=== PATIENT | male | born 1965 | race Caucasian/White ===

== ENCOUNTER → 2018-02-23 | Outpatient (CLI) | payer BC ==
[2018-02-23 16:00] LABS: Basophils # (A) 0.1 k/uL (0-0.2); Basophils % (A) 1 %; Eosinophils # (A) 0.1 k/uL (0-0.7); Eosinophils % (A) 1 %; HCT 48.8 % (39.0-53.0); HGB 16.6 gm/dL (13.0-17.5); Lymphocytes # (A) 2.1 k/uL (1.0-4.8); Lymphocytes % (A) 16 %; MCH 28.1 pg (25.0-35.0); MCHC 34.1 g/dL (31.0-37.0); MCV 82.3 fL (80.0-100.0); Mean Platelet Volume 7.8; Monocytes # (A) 0.8 k/uL (0-1.0); Monocytes % (A) 6 %; Neutrophils # (A) 9.9 k/uL (1.3-7.7); Neutrophils % (A) 75 %; Platelet Count 280 k/uL (150-450); RBC 5.93 m/uL (4.30-5.90); RDW 13.3 % (11.5-15.5); WBC 13.2 k/uL (3.8-10.6)
[2018-02-23 16:09] LABS: Anion Gap 12 mmol/L; Blood Urea Nitrogen 21 mg/dL (9-20); Calcium 9.8 mg/dL (8.4-10.2); Carbon Dioxide 27 mmol/L (22-30); Chloride 101 mmol/L (98-107); Glucose 95 mg/dL (74-99); Potassium 4.2 mmol/L (3.5-5.1); Sodium 140 mmol/L (137-145)
== END | disposition home or self-care (01) ==
LOC: LABPAT 15:22
PROVIDERS: ATTEND Urology
DX: Z01.818 Encounter for other preprocedural examination (principal); I10 Essential (primary) hypertension; C61 Malignant neoplasm of prostate; R35.0 Frequency of micturition; Z79.899 Other long term (current) drug therapy; Z01.812 Encounter for preprocedural laboratory examination
CPT/HCPCS: 36415; 80048; 85025; 87086; 93005

== ENCOUNTER 2018-03-03 08:45 | Day surgery (SDC) | payer BC ==
[2018-02-28 09:33] VITALS: BMI 33.7
[~2018-03-03 08:45] MED LIST: HEPARIN SODIUM,PORCINE 5,000 UNIT/ML 1 ML VIAL SQ ONE; HYDROmorphone 0.5 MG/0.5 ML SYRINGE IVP PRN; LIDOCAINE 1% 20 ML VIAL (10MG/ML) FOR IV START INTRADERMA PRN; MIDAZOLAM 2 MG/2 ML VIAL IV PRN; ONDANSETRON 4 MG/2 ML VIAL IVP ONE; SCOPOLAMINE 1.5MG/72HR PATCH TRANSDERM ONE; ceFAZolin IN SWFI 2 GM/20 ML SYRINGE IVP ONE
[2018-03-03] MEDS: LACTATED RINGERS 1,000 ML IV SCH (09:14)
[2018-03-03] MEDS ORDERED: ceFAZolin 1,000 MG VIAL ONE (13:09)
[2018-03-03] MEDS ORDERED: fentaNYL (PF) 50 MCG/ML 2 ML AMP ONE (13:09)
[2018-03-03] MEDS ORDERED: MIDAZOLAM 2 MG/2 ML VIAL ONE (13:09)
[2018-03-03] MEDS ORDERED: ROCURONIUM BROMIDE 10 MG/ML 10 ML VIAL IV ONE (13:09)
[2018-03-03] MEDS ORDERED: SUCCINYLCHOLINE CHLORIDE 100 MG/5 ML SYR IV ONE (13:09)
[2018-03-03] MEDS ORDERED: LIDOCAINE 1% INJ 10MG/ML (20 ML MDV) ONE (13:09)
[2018-03-03] MEDS ORDERED: ePHEDrine SULFATE/0.9% NACL/PF 50 MG/5 ML SYRINGE IV ONE (13:09)
[2018-03-03] MEDS ORDERED: PHENYLEPHRINE-0.9% NACL SYG 1 MG/10 ML SYRINGE ONE (13:09)
[2018-03-03] MEDS ORDERED: PROPOFOL 10 MG/ML 20 ML VIAL IV ONE (13:09)
[2018-03-03] MEDS ORDERED: GLYCOPYRROLATE 0.2 MG/ML 2 ML VIAL ONE (13:09)
[2018-03-03] MEDS ORDERED: NEOSTIGMINE 1 MG/ML 10 ML VIAL ONE (13:09)
[2018-03-03] MEDS ORDERED: LACTATED RINGERS 1,000 ML IV ONE ×3 (13:27→17:15)
[2018-03-03] MEDS ORDERED: BUPIVACAINE (PF) 0.5% 30 ML VIAL SQ ONE ×2 (13:38)
[2018-03-03] MEDS ORDERED: HYDROmorphone 0.5 MG/0.5 ML SYRINGE IVP PRN (16:29)
[2018-03-03] MEDS ORDERED: MAG HYDROX/AL HYDROX/SIMETH 30 ML CUP PO PRN (16:29)
[2018-03-03] MEDS ORDERED: ONDANSETRON 4 MG/2 ML VIAL IVP PRN (16:29)
[2018-03-03] MEDS ORDERED: ACETAMINOPHEN TAB 325 MG TAB PO PRN (16:29)
[2018-03-03] MEDS ORDERED: KETOROLAC 30 MG/ML 1 ML VIAL IVP PRN (16:29)
--- NOTE | 2018-03-03 16:29 | P.OP ---
Date of Procedure: 03/03/18 Preoperative Diagnosis: Adenocarcinoma of the prostate, clinical stage TIc NX M0 Postoperative Diagnosis: Same Procedure(s) Performed: Nerve sparing Robotic-assisted Laparoscopic Prostatectomy (RALP) Anesthesia: MELISSA Surgeon: Phil Huang Stoker Erector And Servicer #1: Evette Lazo Estimated Blood Loss (ml): 150 IV fluids (ml): 1,400 Pathology: other (Prostate and seminal vesicles) Condition: stable Indications for Procedure: He is a 52-year-old male recently evaluated for a mildly elevated PSA level. He underwent a prostate ultrasound with biopsies, revealing Julio 7 (3 + 4) in 1 of 12 biopsies. I had a lengthy discussion with the patient and his , reviewing alternative treatment options. He has elected to undergo a nerve sparing RALP. Despite this, he understands the possibility of postoperative erectile dysfunction, as well as the possible need for adjuvant therapy. Operative Findings: No evidence of extraprostatic disease. Description of Procedure: The patient was taken in the operating room and placed in the dorsal lithotomy position, with his legs supported in Feliciano stirrups. He was carefully positioned on a beanbag for stability. The abdomen and external genitalia were prepped and draped sterilely. A Kincaid catheter was inserted. The Veress needle was passed through the anterior abdominal wall immediately cephalad to the umbilicus, and insufflation was performed to a pressure of 20 mm Hg. Once insufflation was performed, the Veress needle was removed and a supraumbilical incision was made, through which a 12 mm camera port was placed. Under camera guidance, 3 8 mm robotic ports were placed, 2 on the left and one on the right. An additional 12 mm port was placed on the right lateral side for use as an talent acquisition assistant port. A 5 mm port was placed to the right of the camera port for suction. The patient was placed in Trendelenburg position, and docking was then performed to the da Jerson system utilizing a 4-arm approach. The abdomen was examined. The sigmoid colon was mobilized out of the pelvis. The peritoneum was incised lateral to the medial umbilical ligaments bilaterally , exposing the pubis. The peritoneum was then incised across the midline, allowing the bladder flap to be taken down. The endopelvic fascia was opened bilaterally, and muscular attachments from the urogenital diaphragm were swept away from the prostate. The vesical neck was incised transversely, down to the lumen. The Kincaid catheter was brought out through the anterior vesical neck incision and was used for traction. The posterior aspect of the vesical neck was incised, such that the full-thickness of the vesical neck was divided. The anterior layer of the Denonvilliers fascia was incised, exposing the vas deferens. Each were isolated and divided. Next, each of the seminal vesicles were dissected away from adjacent tissues, and vascular attachments were cauterized and divided. The posterior leaf of Denonvilliers fascia was incised transversely, allowing entry into the plane between the prostate and rectum. With lateral spreading, this plane was developed down to the apex. This exposed the lateral vascular pedicles bilaterally. These were clipped and divided in an antegrade fashion, down to the apex. The use of electrocautery was avoided to prevent thermal damage to the nerves. The plane of dissection was immediately adjacent to the prostate on the right side, whereas a partial nerve sparing procedure was performed on the left side. The remaining apical attachments were swept away from the prostate. The dorsal venous complex was incised, as well as periurethral tissue. At this point, only the urethra remained intact. This was transected immediately distal to the prostatic apex using cold scissors. The specimen was placed within a specimen bag. The dorsal venous complex was sutured using a V-Loc suture in a running fashion. A second V-Loc suture was then used to place the Ray stitch, incorporating the rhabdosphincter and the edge of Denonvilliers fascia. This allowed the bladder to be taken down to the urethra, leaving the vesical neck immediately adjacent to the urethra. The vesicourethral anastomosis was then performed using a V-Loc suture in a running fashion. After completing the anastomosis, an 18-Mongolian Kincaid catheter was placed and approximately 150 mL of 0.9 normal saline were instilled into the bladder. No extravasation of irrigant from the vesicourethral anastomosis was noted. Hemostasis was noted at this time to be excellent, and it was thus felt that a drain was unnecessary. A small amount of oozing was noted from the vascular pedicles, so Surgicel was placed bilaterally. The patient was returned to the supine position. Undocking was performed, and the specimen bag sutures were passed through the camera port. After removing all the ports and allowing all of the CO2 to be released from the peritoneal cavity, the camera port incision was enlarged to allow removal of the surgical specimen. The fascia of this incision was then closed using 0 Vicryl suture in an interrupted [id number] fashion. Each of the skin incisions were then closed using 4-0 Monocryl suture in a subcuticular fashion. Marcaine was injected at each of the incision sites. Dermabond was applied to each incision. The Kincaid catheter was connected to gravity drainage. All sponge and needle counts were correct. The patient tolerated the procedure well was taken to the recovery room in stable condition.
[2018-03-03 16:57] VITALS: RESP 16
[2018-03-03] MEDS: DEXTROSE 5%-0.45% NACL 1,000 ML IV SCH (19:00)
[2018-03-03] MEDS: HEPARIN SODIUM,PORCINE 5,000 UNIT/ML 1 ML VIAL SQ SCH (21:28)
[2018-03-04] MEDS: DEXTROSE 5%-0.45% NACL 1,000 ML IV SCH ×2 (01:57→13:04)
[2018-03-04 07:49] VITALS: BP 135/74; PULSE 79; TEMP 98.9
[2018-03-04] MEDS ORDERED: LOSARTAN-HCTZ 50-12.5 MG 1 EACH TAB PO SCH (09:00)
[2018-03-04] MEDS: HEPARIN SODIUM,PORCINE 5,000 UNIT/ML 1 ML VIAL SQ SCH (09:20)
--- NOTE | 2018-03-04 13:18 | P.DS ---
Providers Expected date of discharge: 03/04/18 Attending physician: Phil Huang Primary care physician: [place] Hospital Course: On the day of admission, the patient underwent an uncomplicated RALP. The postoperative course was unremarkable. He remained afebrile with stable vital signs. On the first postoperative day, he was ambulating and tolerating diet. On examination, the abdomen was soft, and the incisions clean and dry. The Kincaid catheter was draining clear yellow urine. Procedures: Robotic-assisted laparoscopic prostatectomy (RALP) on 03/03/2018 Patient Condition at Discharge: Good Plan - Discharge Summary Discharge Rx Participant: Yes New Discharge Prescriptions: New Ciprofloxacin HCl [Cipro] 250 mg PO Q12HR #6 tablet Hydrocodone/Acetaminophen [Cornucopia 5-325] 1 - 2 each PO Q4HR PRN #15 tab PRN Reason: Pain No Action Losartan/Hydrochlorothiazide [Losartan-Hctz 100-25 mg Tab] 0.5 tab PO QAM Discharge Medication List Losartan/Hydrochlorothiazide [Losartan-Hctz 100-25 mg Tab] 0.5 tab PO QAM [History] Ciprofloxacin HCl [Cipro] 250 mg PO Q12HR #6 tablet 03/04/18 [Rx] Hydrocodone/Acetaminophen [Cornucopia 5-325] 1 - 2 each PO Q4HR PRN #15 tab 03/04/18 [Rx] Follow up Appointment(s)/Referral(s): Phil Huang MD [STAFF PHYSICIAN] - 03/13/18 Activity/Diet/Wound Care/Special Instructions: Discharge home with Kincaid catheter. Please provide patient a urinary leg bag, and instruct him the use and both a leg bag and an overnight bag. Diet as tolerated. Okay to shower. No lifting, driving, or strenuous activity. Patient is to begin taking ciprofloxacin one day prior to his follow-up appointment. Discharge Disposition: HOME SELF-CARE
== END 2018-03-04 15:15 | disposition home or self-care (01) ==
LOC: OR 08:45 → 3SUR 16:35 → OR 03-04 15:15
PROVIDERS: ATTEND Urology
DX: C61 Malignant neoplasm of prostate (principal); I10 Essential (primary) hypertension; K51.90 Ulcerative colitis, unspecified, without complications; Z80.42 Family history of malignant neoplasm of prostate; Z79.899 Other long term (current) drug therapy; Z88.8 Allergy status to other drugs, medicaments and biological substances; Z87.891 Personal history of nicotine dependence
CPT/HCPCS: 86900; 86901; 86850; 55866; J2250; J1644 ×2; J2710; J2405; J0690 ×2; J2001; J3010; J1885; J2370; J0330; J2704; 88309

== ENCOUNTER → 2018-04-03 | Outpatient (CLI) | payer BC | END | disposition home or self-care (01) | LOC: LABWHC1 09:24 | PROVIDERS: ATTEND Urology | DX: C61 Malignant neoplasm of prostate (principal) | CPT/HCPCS: 36415; 84153 ==

== ENCOUNTER → 2018-06-26 | Outpatient (CLI) | payer BC | LOC: LABWHC1 16:47 | PROVIDERS: ATTEND Urology | DX: C61 Malignant neoplasm of prostate (principal) | CPT/HCPCS: 36415; 84153 ==

== ENCOUNTER → 2018-09-21 | Outpatient (CLI) | payer BC | END | disposition home or self-care (01) | LOC: LABWHC1 07:52 | PROVIDERS: ATTEND Urology | DX: R97.20 Elevated prostate specific antigen [PSA] (principal) | CPT/HCPCS: 36415; 84153 ==

== ENCOUNTER → 2019-04-13 | Outpatient (CLI) | payer BC | END | disposition home or self-care (01) | LOC: LABWHC1 07:39 | PROVIDERS: ATTEND Urology | DX: R97.20 Elevated prostate specific antigen [PSA] (principal) | CPT/HCPCS: 36415; 84153 ==

== ENCOUNTER → 2023-01-19 | Outpatient (CLI) | payer BC | END | disposition home or self-care (01) | LOC: LABWHC1 14:50 | PROVIDERS: ATTEND Urology | DX: C61 Malignant neoplasm of prostate (principal) | CPT/HCPCS: 36415; 84153 ==

== ENCOUNTER → 2023-08-08 | Outpatient (CLI) | payer BC ==
--- NOTE | 2023-08-08 09:10 | XR ---
EXAMINATION TYPE: XR chest 2V DATE OF EXAM: 08/08/2023 COMPARISON: NONE TECHNIQUE: PA and lateral views submitted. HISTORY: Yearly physical FINDINGS: The lungs are clear and there is no pneumothorax, pleural effusion, or focal pneumonia. Heart size normal and no overt failure. Osseous structures demonstrate hypertrophic and degenerative changes of the spine. Hyperinflation correlate for COPD. Biapical pleural thickening. IMPRESSION: 1. No acute process.
== END | disposition home or self-care (01) ==
LOC: RADXRMAIN 08:37
PROVIDERS: ATTEND Family Medicine
DX: J92.9 Pleural plaque without asbestos (principal); F17.210 Nicotine dependence, cigarettes, uncomplicated
CPT/HCPCS: 71046